=== PATIENT | female | born 1950 | race Caucasian/White ===

== ENCOUNTER 2020-08-14 01:50 | Outpatient (CLI) | payer MEDICARE, SELFPAY ==
[2020-08-14 12:55] LABS: Hemoglobin A1C 6.1 % (<5.7)
[2020-08-14 13:00] LABS: Calculated LDL 118 mg/dL (<100); Cholesterol 210 mg/dL (<200); HDL Cholesterol 76 mg/dL (40-60); Triglyceride 80 mg/dL (<150)
== END 2020-08-14 01:51 | disposition home or self-care (01) ==
LOC: LOS 01:51
PROVIDERS: PCP Nurse Practitioner; Visit Provider Nurse Practitioner
DX: E78.5 Hyperlipidemia, unspecified (principal); R73.09 Other abnormal glucose
CPT/HCPCS: 36415; 80061; 83036

== ENCOUNTER → 2021-08-14 00:29 | Outpatient (CLI) | payer MEDICARE, MEDICAID, SELFPAY ==
--- NOTE | 2021-08-14 07:30 | DI.DEXA_ITS ---
Exam(s) XR DEXA BONE DENSITY W/WO STEPHEN EXAM: XR DEXA BONE DENSITY W/WO STEPHEN CLINICAL HISTORY: SCREENING FOR OSTEOPOROSIS IN POSTMENOPAUSAL WOMAN,Z78.0 TECHNIQUE: COMPARISON: No exams were available for comparison FINDINGS: DEXA scan was performed according to the usual protocol. Lateral vertebral scanogram shows mild anterior wedging of mid thoracic vertebral bodies and probable mild anterior compression fracture of L1 vertebral body. Left hip scanning shows T-score -2.0 with left femoral neck T-score -2.6. Lumbar spine scanning shows T-score -2.4. Left forearm scanning shows T-score -2.6. IMPRESSION: Measurements are consistent with osteoporosis according to the WHO criteria. There are mild thoraci c and lumbar vertebral compression fractures. RADIATION DOSE DELIVERED: Total DLP
== END ==
PROVIDERS: PCP Nurse Practitioner; Visit Provider Nurse Practitioner
DX: Z78.0 Asymptomatic menopausal state (principal); Z13.820 Encounter for screening for osteoporosis; M84.48XA Pathological fracture, other site, initial encounter for fracture
CPT/HCPCS: 77080

== ENCOUNTER → 2021-12-02 12:02 | Outpatient (CLI) | payer MEDICARE, MEDICAID, SELFPAY ==
--- NOTE | 2021-12-02 10:03 | DI.RAD_ITS ---
Exam(s) XR FOOT LT COMPLETE EXAM: XR FOOT LT COMPLETE CLINICAL HISTORY: evaluate for heel calcification M79.672 PAIN LEFT FOOT. TECHNIQUE: 2D digital imaging was performed. Three views. COMPARISON: No exams were available for comparison FINDINGS: BONES: No acute fracture is present. No bony destructive lesion is seen. Tiny plantar calcaneal spur. JOINTS: No dislocation present. No significant degenerative changes. SOFT TISSUE: Normal. No calcification in the plantar fascia. IMPRESSION: Tiny calcaneal spur. DATA REPOSITORY: RADIATION DOSE DELIVERED:
== END ==
PROVIDERS: PCP Nurse Practitioner; Visit Provider Nurse Practitioner Family
DX: M79.672 Pain in left foot (principal); M77.32 Calcaneal spur, left foot
CPT/HCPCS: 73630

== ENCOUNTER → 2022-01-19 13:34 | Outpatient (CLI) | payer MEDICARE, MEDICAID, SELFPAY ==
--- NOTE | 2022-01-19 13:15 | DI.US_ITS ---
Exam(s) US LOWER EXTREMITY VENOUS RT EXAM: US LOWER EXTREMITY VENOUS RT CLINICAL HISTORY: Rt lower leg pain and swelling, M79.661, M79.89, r/o DVT TECHNIQUE: Right lower extremity venous ultrasound performed using grayscale, color-flow, and spectr al Doppler analysis. COMPARISON: No exams were available for comparison FINDINGS: The right common femoral, femoral and popliteal veins demonstrate normal compressibility, augmentatio n, and color Doppler. The posterior tibial veins are patent. The saphenofemoral junction is unremark able. There is no evidence of a Tan cyst. The soft tissues are unremarkable. There is thrombus se en in the small saphenous vein. The thrombus measures approximately 14.5 cm in length. The proximal portion of the thrombus is located 0.6 cm from its junction with the popliteal vein. There is no th rombus seen extending into the popliteal vein. IMPRESSION: 1. No evidence of a right lower extremity DVT. 2. Superficial thrombophlebitis. 3. Findings were discussed with the primary care provider on 01/19/2022. DATA REPOSITORY:
== END ==
PROVIDERS: PCP Nurse Practitioner Family; Visit Provider Nurse Practitioner Family
DX: I82.811 Embolism and thrombosis of superficial veins of right lower extremity (principal); M79.89 Other specified soft tissue disorders
CPT/HCPCS: 93971

== ENCOUNTER 2022-03-09 03:28 | Outpatient (CLI) | payer MEDICARE, MEDICAID, SELFPAY ==
[2022-03-09 13:02] LABS: ALT 17 U/L (14-59); AST 18 U/L (15-37); Albumin 3.9 g/dL (3.4-5.0); Alkaline Phosphatase 68 U/L (46-116); Anion Gap 5.7 mmol/L (3-11); BUN 14 mg/dL (7-18); Bilirubin, Total 0.5 mg/dL (0.2-1.0); CO2 29.3 mmol/L (21.0-32.0); CREATININE 0.9 mg/dL (0.55-1.02); Calcium 8.8 mg/dL (8.5-10.1); Chloride 104 mmol/L (98-107); Estimated GFR 67.08 (mL/min/1.73m2); Glucose 101 mg/dL (74-106); Potassium 3.8 mmol/L (3.5-5.1); Sodium 139 mmol/L (136-145); Total Protein 7.2 g/dL (6.4-8.2)
== END 2022-03-09 03:29 | disposition home or self-care (01) ==
LOC: LOS 03:34
PROVIDERS: PCP Nurse Practitioner Family; Visit Provider Nurse Practitioner Family
DX: R73.03 Prediabetes (principal); E78.5 Hyperlipidemia, unspecified
CPT/HCPCS: 36415; 80053; 83036

== ENCOUNTER → 2022-09-14 00:37 | Outpatient (CLI) | payer MEDICARE, MEDICAID, SELFPAY ==
--- NOTE | 2022-09-14 07:15 | DI.RAD_ITS ---
Exam(s) XR ELBOW LT COMPLETE XR FOREARM LT EXAM: XR ELBOW LT COMPLETE and XR forearm LT CLINICAL HISTORY: CREPITUS WORSENED WITH PT, LT ELBOW PAIN, M25.522. TECHNIQUE: 2D digital imaging was performed of the left forearm and elbow. Six images were obtained . AP, lateral and oblique views were obtained. COMPARISON: There are no priors for comparison. FINDINGS: BONES: No acute fracture is present. No bony destructive lesion is seen. JOINTS: The elbow is normally aligned. No joint effusion is seen. SOFT TISSUE: Normal. IMPRESSION: Unremarkable radiographs of the left forearm and elbow. DATA REPOSITORY: RADIATION DOSE DELIVERED:
== END ==
PROVIDERS: PCP Nurse Practitioner Family; Visit Provider Nurse Practitioner Family
DX: M25.522 Pain in left elbow (principal)
CPT/HCPCS: 73080; 73090

== ENCOUNTER 2023-02-23 14:27 | Outpatient (CLI) | payer MEDICARE, MEDICAID, SELFPAY ==
--- NOTE | 2023-02-23 14:15 | RT.EKG_ITS ---
APPROVED REPORT Exam: Resting ECG Reason for Exam: lily Patient Location: O HR:91 bpm ECG Measurements Heart Rate 91 AXIS [place] 136 P 76 QRSd 112 QRS 66 QT 430 T 62 QTc 530 Conclusion Sinus rhythm...normal P axis, V-rate 50- 99 Ventricular bigeminy...bigeminy string>4 w/ V complexes Probable left atrial enlargement...P >50mS, <-0.10mV V1 Borderline intraventricular conduction delay...QRSd >112mS I have reviewed and interpreted ECG and agree with software generated interpretation.
== END 2023-02-23 14:28 | disposition home or self-care (01) ==
LOC: DI.CM 14:28
PROVIDERS: PCP Nurse Practitioner Family; Visit Provider Nurse Practitioner Family
DX: R00.1 Bradycardia, unspecified (principal)
CPT/HCPCS: 93010

== ENCOUNTER 2023-03-11 11:30 | Outpatient (RCR) | payer MEDICARE, MEDICAID, SELFPAY ==
--- NOTE | 2023-03-11 11:30 | HOLTER_ITS ---
APPROVED REPORT Exam Type: HOLTER MONITOR APPLICATION Reason for Test: evaluate pathology Patient Location: O Conclusion 1. The underlying rhythm is sinus, rate range 45-99 ( average 63 ) bpm. 2. Frequent PVC's in bigeminy. No VTACH. 3. Few PACs, sometimes aberrantly conducted. No SVT. 4. No atrial fibrillation. 5. No pauces
== END 2023-03-30 23:59 | disposition home or self-care (01) ==
LOC: CARDOPNVT 11:30
PROVIDERS: PCP Nurse Practitioner Family; Visit Provider Nurse Practitioner Family
DX: R00.1 Bradycardia, unspecified (principal)
CPT/HCPCS: 93227; 93225

== ENCOUNTER → 2023-08-02 13:09 | Outpatient (CLI) | payer MEDICARE, MEDICAID, SELFPAY ==
--- NOTE | 2023-08-02 12:14 | DI.RAD_ITS ---
Exam(s) XR WRIST LT COMPLETE EXAM: XR WRIST LT COMPLETE CLINICAL HISTORY: evaluate pathology - suspect fx M25.532 PAIN LEFT WRIST. TECHNIQUE: 2D digital imaging was performed. COMPARISON: No exams were available for comparison FINDINGS: 3 views There is generalized osteopenia. No obvious fractures. No significant ulnar variance. However, on the lateral view there is subtle cortical irregularity on the dorsal aspect of the distal radius with overlying soft tissue swelling. Suspect that this may be a very subtle nondisplaced fracture of the distal radius without articular involvement. The scaphoid and scapholunate distance are unremarkabl e. Mild degenerative changes noted in the triscaphe and 1st carpometacarpal articulations. Ulnar st yloid unremarkable. IMPRESSION: Subtle nondisplaced fracture dorsal aspect of the distal radius. DATA REPOSITORY: RADIATION DOSE DELIVERED:
== END ==
PROVIDERS: PCP Nurse Practitioner Family; Visit Provider Nurse Practitioner Family
DX: M25.532 Pain in left wrist (principal); M85.88 Other specified disorders of bone density and structure, other site; M79.89 Other specified soft tissue disorders; S52.592A Other fractures of lower end of left radius, initial encounter for closed fracture
CPT/HCPCS: 73110

== ENCOUNTER 2023-08-16 14:54 | Outpatient (CLI) | payer MEDICARE, MEDICAID, SELFPAY ==
--- NOTE | 2023-08-16 10:23 | DI.RAD_ITS ---
Exam(s) XR WRIST LT LIMITED EXAM: XR WRIST LT LIMITED CLINICAL HISTORY: F/U FRACTURE. TECHNIQUE: 2D digital imaging was performed. COMPARISON: CR XR WRIST LT COMPLETE from 08/02/2023 FINDINGS: Two views. There has been no change in the appearance of the very subtle fracture site in the dorsal cortex of t he distal radius. Position stable. No displacement. No significant ulnar variance. Scaphoid unrem arkable. Mild degenerative changes in the triscaphe joint again noted. IMPRESSION: Stable appearance DATA REPOSITORY: RADIATION DOSE DELIVERED:
== END 2023-08-16 14:55 | disposition home or self-care (01) ==
LOC: DIORS 14:57
PROVIDERS: PCP Nurse Practitioner Family; Referring Provider Nurse Practitioner Family; Visit Provider Student in an Organized Health Care Education/Training Program
DX: S52.502A Unspecified fracture of the lower end of left radius, initial encounter for closed fracture; W01.0XXA Fall on same level from slipping, tripping and stumbling without subsequent striking against object, initial encounter
CPT/HCPCS: 99202; 73100

== ENCOUNTER 2023-09-20 14:49 | Outpatient (CLI) | payer MEDICARE, MEDICAID, SELFPAY ==
--- NOTE | 2023-09-20 09:00 | DI.RAD_ITS ---
Exam(s) XR WRIST LT LIMITED EXAM: XR WRIST LT LIMITED CLINICAL HISTORY: F/U FRACTURE. TECHNIQUE: 2D digital imaging was performed of the left wrist. Two images were obtained. PA and la teral views were obtained. COMPARISON: CR XR WRIST LT LIMITED from 08/16/2023 FINDINGS: BONES: There has been no change in alignment of the nondisplaced fracture involving the distal metaph ysis of the left radius. There is evidence of healing with sclerosis present. No new fractures iden tified. No bony destructive lesion is seen. JOINTS: The carpal bones are normally aligned. SOFT TISSUE: Normal. IMPRESSION: Stable alignment of the healing distal left radial fracture. DATA REPOSITORY: RADIATION DOSE DELIVERED:
== END 2023-09-20 14:50 | disposition home or self-care (01) ==
LOC: DIORS 14:49
PROVIDERS: PCP Nurse Practitioner Family; Visit Provider Student in an Organized Health Care Education/Training Program
DX: S52.502A Unspecified fracture of the lower end of left radius, initial encounter for closed fracture (principal); S56.012A Strain of flexor muscle, fascia and tendon of left thumb at forearm level, initial encounter; X58.XXXA Exposure to other specified factors, initial encounter
CPT/HCPCS: 99213; 73100

== ENCOUNTER 2024-07-10 19:04 | Outpatient (REF) | payer MEDICARE, MEDICAID, SELFPAY ==
[2024-07-10 22:27] LABS: HCT 42.2 % (36.0-46.0); HGB 14.4 g/dL (11.2-15.7); MCH 29.8 pg (27.0-33.0); MCHC 34.1 % (32.0-36.0); MCV 87 fL (80-95); MPV 10.1 fL (8.0-11.0); Platelet Count 217 10^3/uL (130-400); RBC 4.83 10^6/uL (3.93-5.22); RDW 12.1 % (11.7-14.6); RDW-SD 38.8 fL; WBC 5.25 10^3/uL (4.4-10.8)
[2024-07-10 22:37] LABS: ALT 20 U/L (14-59); AST 17 U/L (15-37); Albumin 3.7 g/dL (3.4-5.0); Alkaline Phosphatase 73 U/L (46-116); Anion Gap 8.8 mmol/L (3-11); BUN 18 mg/dL (7-18); Bilirubin, Total 0.5 mg/dL (0.2-1.0); CO2 27.2 mmol/L (21.0-32.0); CREATININE 0.9 mg/dL (0.55-1.02); Calcium 8.9 mg/dL (8.5-10.1); Calculated LDL 110 mg/dL (<100); Chloride 107 mmol/L (98-107); Cholesterol 234 mg/dL (<200); Estimated GFR 66.26 (mL/min/1.73m2); Glucose 133 mg/dL (74-106); HDL Cholesterol 94 mg/dL (>or=50); Potassium 4.1 mmol/L (3.5-5.1); Sodium 143 mmol/L (136-145); Total Protein 6.8 g/dL (6.4-8.2); Triglyceride 152 mg/dL (<150)
[2024-07-10 22:57] LABS: Hemoglobin A1C 5.9 % (<5.7)
== END 2024-07-10 19:05 | disposition home or self-care (01) ==
LOC: LBN 19:04
PROVIDERS: PCP Nurse Practitioner Family; Visit Provider Nurse Practitioner Family
DX: E11.9 Type 2 diabetes mellitus without complications (principal); R19.5 Other fecal abnormalities
CPT/HCPCS: 80053; 80061; 85027; 83036